=== PATIENT | female | born 1960 | race Caucasian/White ===

== ENCOUNTER → 2016-11-23 | Outpatient (CLI) | payer MEDICARE ==
--- NOTE | 2016-11-23 14:00 | MM ---
Reason for exam: follow-up at short interval from prior study. Last mammogram was performed 8 months ago. History: Patient is postmenopausal. Benign MG stereo VAD BX LT of the left breast, April 30, 2016. Stereotactic core biopsy of the right breast, December 31, 2011. Benign stereotactic core biopsy of the left breast, January 17, 2004. Benign stereotactic core biopsy of the right breast, January 17, 2004. Benign stereotactic core biopsy of the left breast, May 28, 2003. Benign excisional biopsy of the right breast, May 14, 2000. 2 core biopsies of the left breast. Core biopsy of the right breast. Excisional biopsy of the left breast. Taking unspecified hormones. Physical Findings: Nurse did not find any significant physical abnormalities on exam. MG 3D Diag Mammo W/Cad LT CC and MLO view(s) were taken of the left breast. Prior study comparison: March 10, 2016, bilateral MG 3d diag mammo w/cad RUDDY. December 09, 2011, mammogram, performed at [place]. There are scattered fibroglandular densities. There is chronic nodularity in the left breast. No significant new findings when compared with previous films. These results were verbally communicated with the patient and result sheet given to the patient on 11/23/16. ASSESSMENT: Benign, BI-RAD 2 RECOMMENDATION: Routine screening mammogram of both breasts in 1 year.
== END | disposition home or self-care (01) ==
LOC: RADMAMWWP 13:08
PROVIDERS: ATTEND Surgery
DX: R92.8 Other abnormal and inconclusive findings on diagnostic imaging of breast (principal)
CPT/HCPCS: G0206; G0279

== ENCOUNTER 2019-05-08 07:46 | Day surgery (SDC) | payer MEDICARE, OTHER ==
[2019-05-05 11:37] VITALS: BMI 38.7
[~2019-05-08 07:46] MED LIST: DEXAMETHASONE SOD PHOSPHATE 10 MG/ML 1 ML VIAL IV ONE; LACTATED RINGERS 1,000 ML IV SCH; LIDOCAINE 1% 20 ML VIAL (10MG/ML) FOR IV START INTRADERMA PRN; MIDAZOLAM 2 MG/2 ML VIAL IV PRN; Pre Op ABX Message 1 EACH MISC MISCELLANE ONE; fentaNYL (PF) 50 MCG/ML 2 ML AMP IV PRN
[2019-05-08 08:09] VITALS: RESP 16; TEMP 98.6
[2019-05-08 08:13] LABS: Glucose,Whole Blood 106 mg/dL (75-99)
[2019-05-08] MEDS ORDERED: ONDANSETRON 4 MG/2 ML VIAL IVP ONE (08:13)
[2019-05-08] MEDS ORDERED: KETOROLAC 30 MG/ML 1 ML VIAL ONE (08:57)
[2019-05-08] MEDS ORDERED: LIDOCAINE 1% INJ 10MG/ML (20 ML MDV) ONE (08:57)
[2019-05-08] MEDS ORDERED: fentaNYL (PF) 50 MCG/ML 2 ML AMP ONE (08:57)
[2019-05-08] MEDS ORDERED: PROPOFOL 10 MG/ML 20 ML VIAL IV ONE (08:57)
[2019-05-08] MEDS ORDERED: MIDAZOLAM 2 MG/2 ML VIAL ONE (08:57)
--- NOTE | 2019-05-08 09:26 | P.OP ---
Date of Procedure: 05/08/19 Preoperative Diagnosis: Postmenopausal bleeding, cervical stenosis, multiple medical problems. Postoperative Diagnosis: Same, essentially negative. Endometrial cavity Procedure(s) Performed: D&C, hysteroscopy. Anesthesia: LAWSONA Surgeon: Meagan Cash Estimated Blood Loss (ml): 10 IV fluids (ml): 600 Urine output (ml): 100 Pathology: other (Endometrial curettings) Condition: stable Disposition: PACU Description of Procedure: Patient is brought to the operating suite where a general anesthetic is administered without difficulty. She's placed in the dorsal lithotomy position. The cervix, vagina, perineal bodies are all prepped and draped in usual sterile fashion. The appropriate timeout is performed to assure proper patient and procedural identification. Bladder is drained for approximately 100 mL of clear yellow urine. The weighted speculum was placed into the vagina and the anterior lip of the stenotic cervix is grasped with an Allis clamp. The cervix is gently and systematically dilated using Hanks dilators. Hysteroscope was introduced and fluid is infused. The cavity is distended and inspected. There is no obvious evidence of polyps, fibroids, septa, or defects. The hysteroscope was removed. A sharp medium curette is used and the cavity is thoroughly curettaged for a small to moderate amount of tissue. Polyp forceps are introduced to assure no remaining tissue is present. The Allis clamp is removed and the anterior lip of the cervix is clean and dry. Patient is brought back to recovery room in stable condition with a blood pressure of 167/85, pulse 82, 98% O2 saturation, respirations 18. She will follow-up with me in the office in 2 weeks. Toradol is given.
[2019-05-08] MEDS ORDERED: HYDROmorphone 1 MG/ML 1 ML SYRINGE IVP ONE ×2 (09:45→10:00)
[2019-05-08 10:33] LABS: Glucose,Whole Blood 134 mg/dL (75-99)
[2019-05-08] MEDS ORDERED: LACTATED RINGERS 1,000 ML IV ONE (10:39)
[2019-05-08 10:55] VITALS: BP 127/74; PULSE 75
== END 2019-05-08 11:17 | disposition home or self-care (01) ==
LOC: OR 07:46
PROVIDERS: ATTEND Obstetrics & Gynecology
DX: N84.0 Polyp of corpus uteri (principal); N95.0 Postmenopausal bleeding; J45.909 Unspecified asthma, uncomplicated; E11.9 Type 2 diabetes mellitus without complications; J43.9 Emphysema, unspecified; E78.00 Pure hypercholesterolemia, unspecified; I10 Essential (primary) hypertension; E66.9 Obesity, unspecified; Z68.36 Body mass index [BMI] 36.0-36.9, adult; Z80.1 Family history of malignant neoplasm of trachea, bronchus and lung; Z80.8 Family history of malignant neoplasm of other organs or systems; F17.210 Nicotine dependence, cigarettes, uncomplicated; Z90.710 Acquired absence of both cervix and uterus; E78.5 Hyperlipidemia, unspecified; F39 Unspecified mood [affective] disorder; Z79.84 Long term (current) use of oral hypoglycemic drugs; Z79.899 Other long term (current) drug therapy; Z79.82 Long term (current) use of aspirin; Z88.0 Allergy status to penicillin
CPT/HCPCS: 88305; 58558; J2250; J1100; J2405; J2001; J3010; J1885; J1170; J2704